=== PATIENT | male | born 1990 | race Caucasian/White ===

== ENCOUNTER 2018-08-10 12:07 | Inpatient (IN) | payer MEDICAID, OTHER ==
--- NOTE | 2018-08-10 13:11 | ED ---
Psych HPI - General Chief Complaint: Psychiatric Symptoms Stated Complaint: mental health Time Seen by Provider: 08/10/18 12:56 Source: patient, RN notes reviewed, old records reviewed Mode of arrival: ambulatory - History of Present Illness Initial Comments: This is a 27-year-old male the ER for evaluation. Patient resents ER today for evaluation or psychiatric issues. Patient is having delusions paranoid thought word salad, fixation flight of ideas. Patient is brought in by PD for psychiatric evaluation, patient's pain petitioned by parents for psychiatric treatment MD Complaint: altered mental status -: unknown Associated Psychiatric Symptoms: racing thoughts, auditory hallucinations, delusions Quality: constant Improves With: none Worsens With: none Associated Symptoms: denies other symptoms Treatments Prior to Arrival: placed on mental health hold - Related Data Home Medications Medication Instructions Recorded Confirmed No Known Home Medications 08/10/18 08/10/18 Allergies Allergy/AdvReac Type Severity Reaction Status Date / Time No Known Allergies Allergy Verified 08/10/18 12:47 Review of Systems ROS Statement: Those systems with pertinent positive or pertinent negative responses have been documented in the HPI. ROS Other: All systems not noted in ROS Statement are negative. Past Medical History Past Medical History: No Reported History History of Any Multi-Drug Resistant Organisms: None Reported Past Surgical History: No Surgical Hx Reported Past Psychological History: Anxiety, Bipolar, PTSD Smoking Status: Current every day smoker Past Alcohol Use History: Occasional Past Drug Use History: Marijuana General Exam Limitations: no limitations, altered mental status General appearance: alert, in no apparent distress Head exam: Present: atraumatic, normocephalic, normal inspection Eye exam: Present: normal appearance, PERRL, EOMI. Absent: scleral icterus, conjunctival injection, periorbital swelling ENT exam: Present: normal exam, mucous membranes moist Neck exam: Present: normal inspection. Absent: tenderness, meningismus, lymphadenopathy Respiratory exam: Present: normal lung sounds bilaterally. Absent: respiratory distress, wheezes, rales, rhonchi, stridor Cardiovascular Exam: Present: regular rate, normal rhythm, normal heart sounds. Absent: systolic murmur, diastolic murmur, rubs, gallop, clicks GI/Abdominal exam: Present: soft, normal bowel sounds. Absent: distended, tenderness, guarding, rebound, rigid Extremities exam: Present: normal inspection, full ROM, normal capillary refill. Absent: tenderness, pedal edema, joint swelling, calf tenderness Back exam: Present: normal inspection Neurological exam: Present: alert, oriented X3, CN II-XII intact Psychiatric exam: Present: normal affect, normal mood Skin exam: Present: warm, dry, intact, normal color. Absent: rash Course Vital Signs 08/10/18 08/10/18 12:19 19:00 Temperature 97.7 F 99.0 F Pulse Rate 88 77 Respiratory 24 18 Rate Blood Pressure 132/93 136/69 O2 Sat by Pulse 99 99 Oximetry - Reevaluation(s) Reevaluation #1: 08/10/18 14:03 Patient's medically clear for psychiatric evaluation Medical Decision Making - Medical Decision Making 27 male seen evaluated with psychiatry, patient be admitted for psychiatric inpatient treatment - Lab Data Lab Results 08/10/18 08/10/18 Range/Units 17:15 17:15 Urine Color Yellow Urine Appearance Cloudy (Clear) Urine pH 6.5 (5.0-8.0) Ur Specific [place] 1.019 (1.001-1.035) Urine Protein 1+ H (Negative) Urine Glucose (UA) Negative (Negative) Urine Ketones Negative (Negative) Urine Blood Negative (Negative) Urine Nitrite Negative (Negative) Urine Bilirubin Negative (Negative) Urine Urobilinogen 2.0 (<2.0) mg/dL Ur Leukocyte Esterase Negative (Negative) Urine RBC 2 (0-5) /hpf Urine Mucus Rare H (None) /hpf Urine Opiates Screen Not Detected (NotDetected) Ur Oxycodone Screen Not Detected (NotDetected) Urine Methadone Screen Not Detected (NotDetected) Ur Propoxyphene Screen Not Detected (NotDetected) Ur Barbiturates Screen Not Detected (NotDetected) U Tricyclic Antidepress Not Detected (NotDetected) Ur Phencyclidine Scrn Not Detected (NotDetected) Ur Amphetamines Screen Not Detected (NotDetected) U Methamphetamines Scrn Not Detected (NotDetected) U Benzodiazepines Scrn Not Detected (NotDetected) Urine Cocaine Screen Not Detected (NotDetected) U Marijuana (THC) Screen Detected H (NotDetected) Disposition Clinical Impression: Acute psychosis Disposition: TRANSFER TO PSYCH HOSP/UNIT Condition: Fair Is patient prescribed a controlled substance at d/c from ED?: No
[2018-08-10 17:44] LABS: Amphetamine Screen,Urine Not Detected (NotDetected); Barbiturate Screen,Urine Not Detected (NotDetected); Benzodiazepines Screen,Urine Not Detected (NotDetected); Cocaine Screen,Urine Not Detected (NotDetected); Methadone Screen, Urine Not Detected (NotDetected); Opiate Screen,Urine Not Detected (NotDetected); Oxycodone Screen, Urine Not Detected (NotDetected); Phencyclidine Screen,Urine Not Detected (NotDetected); Tricyclic Antidepressant,Urine Not Detected (NotDetected); Urn Cannabinoid Scrn Detected (NotDetected)
[2018-08-10] MEDS ORDERED: MAG HYDROX/AL HYDROX/SIMETH 30 ML CUP PO PRN (19:26)
[2018-08-10] MEDS ORDERED: ZIPRASIDONE 20 MG VIAL IM PRN (19:26)
[2018-08-10] MEDS ORDERED: MAGNESIUM HYDROXIDE 2,400 MG/10 ML CUP PO PRN (19:26)
[2018-08-10] MEDS ORDERED: LORazepam 2 MG/ML INJ IM PRN (19:37)
[2018-08-10] MEDS ORDERED: WATER FOR INJECTION, STERILE 10 ML IV ONE (19:41)
[2018-08-10] MEDS ORDERED: ZIPRASIDONE 20 MG VIAL IM ONE (19:41)
[2018-08-10 19:54] LABS: Appearance,Urine Cloudy (Clear); Bilirubin,Urine Negative (Negative); Blood,Urine Negative (Negative); Color,Urine Yellow; Glucose,Urine (UA) Negative (Negative); Ketones,Urine Negative (Negative); Leukocyte Esterase,Urine Negative (Negative); Mucus,Urine Rare /hpf; Nitrite,Urine Negative (Negative); PH, Urine 6.5 (5.0-8.0); Protein,Urine 1+ (Negative); RBC,Urine 2 /hpf (0-5); Specific Gravity,Urine 1.019 (1.001-1.035)
[2018-08-10] MEDS: NICOTINE 14MG/24HR PATCH TRANSDERM SCH (21:12)
--- NOTE | 2018-08-11 07:04 | P.PN ---
Progress Note - Text Progress Note Date: 08/11/18 I was notified by RN to evaluate patient as new medical consult. Patient was agitated, and using vulgar language, He did not cooperate with interview at this time. please notify sound physicians at a later time when patient is more cooperative and ready to be evaluated medically.
[2018-08-11] MEDS: NICOTINE 14MG/24HR PATCH TRANSDERM SCH (08:59)
--- NOTE | 2018-08-11 11:17 | P.HP ---
Psychiatric H&P - . H&P Date: 08/11/18 History & Physical: Allergies Allergy/AdvReac Type Severity Reaction Status Date / Time No Known Allergies Allergy Verified 08/10/18 12:47 Vital Signs Temp 98.6 F 08/10/18 22:13 Pulse 77 08/10/18 19:00 Resp 18 08/10/18 22:13 BP 129/81 08/10/18 22:13 Pulse Ox 99 08/10/18 19:00 Intake & Output 08/10/18 08/11/18 08/11/18 18:59 06:59 18:59 Weight 62.142 kg 65.317 kg Laboratory Last Values Urine Color Yellow 08/10/18 17:15 Urine Appearance Cloudy (Clear) 08/10/18 17:15 Urine pH 6.5 (5.0-8.0) 08/10/18 17:15 Ur Specific [place] 1.019 (1.001-1.035) 08/10/18 17:15 Urine Protein 1+ (Negative) H 08/10/18 17:15 Urine Glucose (UA) Negative (Negative) 08/10/18 17:15 Urine Ketones Negative (Negative) 08/10/18 17:15 Urine Blood Negative (Negative) 08/10/18 17:15 Urine Nitrite Negative (Negative) 08/10/18 17:15 Urine Bilirubin Negative (Negative) 08/10/18 17:15 Urine Urobilinogen 2.0 mg/dL (<2.0) 08/10/18 17:15 Ur Leukocyte Esterase Negative (Negative) 08/10/18 17:15 Urine RBC 2 /hpf (0-5) 08/10/18 17:15 Urine Mucus Rare /hpf (None) H 08/10/18 17:15 Urine Opiates Screen Not Detected (NotDetected) 08/10/18 17:15 Ur Oxycodone Screen Not Detected (NotDetected) 08/10/18 17:15 Urine Methadone Screen Not Detected (NotDetected) 08/10/18 17:15 Ur Propoxyphene Screen Not Detected (NotDetected) 08/10/18 17:15 Ur Barbiturates Screen Not Detected (NotDetected) 08/10/18 17:15 U Tricyclic Antidepress Not Detected (NotDetected) 08/10/18 17:15 Ur Phencyclidine Scrn Not Detected (NotDetected) 08/10/18 17:15 Ur Amphetamines Screen Not Detected (NotDetected) 08/10/18 17:15 U Methamphetamines Scrn Not Detected (NotDetected) 08/10/18 17:15 U Benzodiazepines Scrn Not Detected (NotDetected) 08/10/18 17:15 Urine Cocaine Screen Not Detected (NotDetected) 08/10/18 17:15 U Marijuana (THC) Screen Detected (NotDetected) H 08/10/18 17:15 Assessment and Plan Assessment: This is a 27-year-old male the ER for evaluation. Patient resents ER today for evaluation or psychiatric issues. Patient is having delusions paranoid thought word salad, fixation flight of ideas. Patient is brought in by PD for psychiatric evaluation, patient's pain petitioned by parents for psychiatric treatment MD Complaint: altered mental status -: unknown Associated Psychiatric Symptoms: racing thoughts, auditory hallucinations, delusions Quality: constant Improves With: none Worsens With: none Associated Symptoms: denies other symptoms Treatments Prior to Arrival: placed on mental health hold - Related Data Home Medications Medication Instructions Recorded Confirmed No Known Home Medications 08/10/18 08/10/18 Allergies Allergy/AdvReac Type Severity Reaction Status Date / Time No Known Allergies Allergy Verified 08/10/18 12:47 Past Medical History Past Medical History: No Reported History History of Any Multi-Drug Resistant Organisms: None Reported Past Surgical History: No Surgical Hx Reported Past Psychological History: Anxiety, Bipolar, PTSD Smoking Status: Current every day smoker Past Alcohol Use History: Occasional Past Drug Use History: Marijuana Course Vital Signs 08/10/18 08/10/18 12:19 19:00 Temperature 97.7 F 99.0 F Pulse Rate 88 77 Respiratory 24 18 Rate Blood Pressure 132/93 136/69 O2 Sat by Pulse 99 99 Oximetry Lab Results 08/10/18 08/10/18 Range/Units 17:15 17:15 Urine Color Yellow Urine Appearance Cloudy (Clear) Urine pH 6.5 (5.0-8.0) Ur Specific [place] 1.019 (1.001-1.035) Urine Protein 1+ H (Negative) Urine Glucose (UA) Negative (Negative) Urine Ketones Negative (Negative) Urine Blood Negative (Negative) Urine Nitrite Negative (Negative) Urine Bilirubin Negative (Negative) Urine Urobilinogen 2.0 (<2.0) mg/dL Ur Leukocyte Esterase Negative (Negative) Urine RBC 2 (0-5) /hpf Urine Mucus Rare H (None) /hpf Urine Opiates Screen Not Detected (NotDetected) Ur Oxycodone Screen Not Detected (NotDetected) Urine Methadone Screen Not Detected (NotDetected) Ur Propoxyphene Screen Not Detected (NotDetected) Ur Barbiturates Screen Not Detected (NotDetected) U Tricyclic Antidepress Not Detected (NotDetected) Ur Phencyclidine Scrn Not Detected (NotDetected) Ur Amphetamines Screen Not Detected (NotDetected) U Methamphetamines Scrn Not Detected (NotDetected) U Benzodiazepines Scrn Not Detected (NotDetected) Urine Cocaine Screen Not Detected (NotDetected) U Marijuana (THC) Screen Detected H (NotDetected) Pt. brought in to by police. Pt. was at a restuarant in [place] and talking inappropriately. Mom came to ER to petition pt. Pt. had been in rehab and got into an arguement about some missing belongings and refused medication to calm down so had to leave. He is staying with his mother and step dad and went to work yesterday with a [employer] of his step dads friend. Pt. starting acting crazy. Per step dad he stated he wanted to jump off bridge and made a statement about being buried by his step dads son. Pt. came into ER rambling and making sexually inappropiate comments. Pt. talked about going on a cruise and looking for a girl to go with him. 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 Pt. unable to answer questions appropriately and started making gestures ie sticking himself in the side and saluting. When asked about any halucinations he stated "No fairy dust, no shadow figures. " Pt. continued to ramble and is hard to follow. Pt. talking to someone not in the room at times. Pt. rambled about his drinking. Pt. states "socially, every 3 years only on the weekends and when the right crowd is around. Business casual." Pt. states last drink was not long enough, for right now I am making the right choice." Pt. states he has been sober from [facility] [employer] and it's associates. Pt. UDS positive for marijuana Musculoskeletal Examination - Abnormal/Involuntary Movements: [none] Strength: [greater than antigravity (greater than/equal to 3/5) in all extremities Muscle Tone: [no impairment, dystonia, hypertonic/myoclonus, rigidity, flaccid] Gait: [grossly normal Station: [grossly normal Mental Status Examination - this is a 27-year-old male who was petitioned and brought in by the police. He is very grandiose and presentation casually dressed with a rapid pressured speech. He denies suicidal homicidal ideation at the current time. General Appearance: [ casual, bizarre, appears stated age Speech/Language: [spontaneous rapid, expressive, loud, ] Attitude/Behavior: [cooperative, irritable Mood: [ euphoric, anxious, elated, irritable, Affect: [ lively, labile, Orientation: [time, person, place situation] Thought Content: [ delusions, obsessions, phobias, other] Risk Factors: [suicidal (ideations, plan), and/or Homicidal (ideations, plan), other] Perception: [wnl, denies hallucinations (auditory, visual, tactile), other] Thought Processes: [ concrete, circumstantial, tangential] Concentration/Attention Span: [impaired] [Per observation and interview with the patient] Recent Memory: [ impaired] [2 out of 3 in 3 minutes] Remote Memory: [wnl] [past events, as related history] Intelligence: [ average] [based on history, based on vocabulary, syntax, grammar , and content] Judgement: [good] [per patient's behavior/history of present illness] Insight: [good] [understanding severity of illness/history of present illness] Admitting Diagnosis: [acute psychosis; bipolar disorder-maniac ] Patient Strengths - Steady employment/financial stability: [x] Housing stability: [x] Resources - social, interpersonal, monetary: [x] Patient Limitations: [medication, non-compliance, pathological/unsupported environment, legal issues, lack of social supports, Initial Plan of Care: [involuntary medical evaluation, medical, psychiatric, 15 minutes checks social work, occupational. This appears to be his first time in a psychiatric facility and having a first-time break for gail. As mentioned below. He does have a DUI where he was high on amphetamines and is awaiting charges. He is very bizarre and delusional, tangential in presentation and grandiose in nature.] Estimated Length of Stay: 7 Initial Discharge Plan: [home, [facility], Prognosis: [good] Justification for Inpatient Hospitalization - [delusions, agitation, anxiety, depression resulting in significant loss of functioning.] [Dangerous to others, or property with need for controlled environment.] [Emotional or behavioral conditions and complications requiring 24 hour medical and nursing care.] [Need for special drug therapy, or other therapeutic program requiring continuous hospitalization.] [Failure of social or occupational functioning.] [Inability to meet basic life and health needs.] [Legally mandated admission.]facing OUI- June 02, 2018-12 hours detention (1) Bipolar depression manic phase Current Visit: Yes Status: Acute Priority: High Code(s): F31.9 - BIPOLAR DISORDER, UNSPECIFIED SNOMED Code(s): 574341597 (2) Acute psychosis Current Visit: Yes Status: Acute Priority: High Code(s): F23 - BRIEF PSYCHOTIC DISORDER SNOMED Code(s): 29475601
[2018-08-11 11:22] LABS: Basophils # (A) 0.1 k/uL (0-0.2); Basophils % (A) 1 %; Eosinophils # (A) 0.2 k/uL (0-0.7); Eosinophils % (A) 2 %; HCT 45.8 % (39.0-53.0); HGB 14.7 gm/dL (13.0-17.5); Lymphocytes # (A) 3.3 k/uL (1.0-4.8); Lymphocytes % (A) 34 %; MCH 27.9 pg (25.0-35.0); MCV 87.3 fL (80.0-100.0); Mean Platelet Volume 6.5; Monocytes # (A) 0.4 k/uL (0-1.0); Monocytes % (A) 4 %; Neutrophils # (A) 5.5 k/uL (1.3-7.7); Neutrophils % (A) 57 %; Platelet Count 352 k/uL (150-450); RBC 5.25 m/uL (4.30-5.90); RDW 13.4 % (11.5-15.5); WBC 9.6 k/uL (3.8-10.6)
[2018-08-11 11:33] LABS: ALT 49 U/L (21-72); AST 52 U/L (17-59); Albumin 4.6 g/dL (3.5-5.0); Alkaline Phosphatase 43 U/L (38-126); Anion Gap 8 mmol/L; Bilirubin, Delta 0.2 mg/dL (0.0-0.2); Bilirubin,Unconjugated 0.3 mg/dL (0.0-1.1); Blood Urea Nitrogen 16 mg/dL (9-20); Calcium 10.3 mg/dL (8.4-10.2); Carbon Dioxide 28 mmol/L (22-30); Chloride 105 mmol/L (98-107); Glucose 80 mg/dL (74-99); Potassium 4.7 mmol/L (3.5-5.1); Sodium 141 mmol/L (137-145); Total Bilirubin 0.5 mg/dL (0.2-1.3); Total Protein 7.2 g/dL (6.3-8.2)
[2018-08-12] MEDS: NICOTINE 14MG/24HR PATCH TRANSDERM SCH (09:41)
--- NOTE | 2018-08-12 12:13 | P.PN ---
Subjective Progress Note Date: 08/12/18 Principal diagnosis: acute psychosis-bipolar disorder This is a 27-year-old male the ER for evaluation. Patient resents ER today for evaluation or psychiatric issues. Patient is having delusions paranoid thought word salad, fixation flight of ideas. Patient is brought in by PD for psychiatric evaluation, patient's pain petitioned by parents for psychiatric treatment this is a 27-year-old male who was petitioned and brought in by the police. He is very grandiose and presentation casually dressed with a rapid pressured speech. He denies suicidal homicidal ideation at the current time. Objective - Vital Signs Vital signs: Vital Signs Temp 98.6 F 08/10/18 22:13 Pulse 89 08/12/18 06:54 Resp 16 08/12/18 06:54 BP 132/77 08/12/18 06:54 Pulse Ox 99 08/10/18 19:00 - Labs CBC & Chem 7: 08/11/18 10:58 08/11/18 10:58 Assessment and Plan Assessment: This is a 27-year-old male the ER for evaluation. Patient resents ER today for evaluation or psychiatric issues. Patient is having delusions paranoid thought word salad, fixation flight of ideas. Patient is brought in by PD for psychiatric evaluation, patient's pain petitioned by parents for psychiatric treatment MD Complaint: altered mental status -: unknown Associated Psychiatric Symptoms: racing thoughts, auditory hallucinations, delusions Quality: constant Improves With: none Worsens With: none Associated Symptoms: denies other symptoms Treatments Prior to Arrival: placed on mental health hold - Related Data Home Medications Medication Instructions Recorded Confirmed No Known Home Medications 08/10/18 08/10/18 Allergies Allergy/AdvReac Type Severity Reaction Status Date / Time No Known Allergies Allergy Verified 08/10/18 12:47 Past Medical History Past Medical History: No Reported History History of Any Multi-Drug Resistant Organisms: None Reported Past Surgical History: No Surgical Hx Reported Past Psychological History: Anxiety, Bipolar, PTSD Smoking Status: Current every day smoker Past Alcohol Use History: Occasional Past Drug Use History: Marijuana Course Vital Signs 08/10/18 08/10/18 12:19 19:00 Temperature 97.7 F 99.0 F Pulse Rate 88 77 Respiratory 24 18 Rate Blood Pressure 132/93 136/69 O2 Sat by Pulse 99 99 Oximetry Lab Results 08/10/18 08/10/18 Range/Units 17:15 17:15 Urine Color Yellow Urine Appearance Cloudy (Clear) Urine pH 6.5 (5.0-8.0) Ur Specific [place] 1.019 (1.001-1.035) Urine Protein 1+ H (Negative) Urine Glucose (UA) Negative (Negative) Urine Ketones Negative (Negative) Urine Blood Negative (Negative) Urine Nitrite Negative (Negative) Urine Bilirubin Negative (Negative) Urine Urobilinogen 2.0 (<2.0) mg/dL Ur Leukocyte Esterase Negative (Negative) Urine RBC 2 (0-5) /hpf Urine Mucus Rare H (None) /hpf Urine Opiates Screen Not Detected (NotDetected) Ur Oxycodone Screen Not Detected (NotDetected) Urine Methadone Screen Not Detected (NotDetected) Ur Propoxyphene Screen Not Detected (NotDetected) Ur Barbiturates Screen Not Detected (NotDetected) U Tricyclic Antidepress Not Detected (NotDetected) Ur Phencyclidine Scrn Not Detected (NotDetected) Ur Amphetamines Screen Not Detected (NotDetected) U Methamphetamines Scrn Not Detected (NotDetected) U Benzodiazepines Scrn Not Detected (NotDetected) Urine Cocaine Screen Not Detected (NotDetected) U Marijuana (THC) Screen Detected H (NotDetected) Pt. brought in to by police. Pt. was at a restuarant in [place] and talking inappropriately. Mom came to ER to petition pt. Pt. had been in rehab and got into an arguement about some missing belongings and refused medication to calm down so had to leave. He is staying with his mother and step dad and went to work yesterday with a [employer] of his step dads friend. Pt. starting acting crazy. Per step dad he stated he wanted to jump off bridge and made a statement about being buried by his step dads son. Pt. came into ER rambling and making sexually inappropiate comments. Pt. talked about going on a cruise and looking for a girl to go with him. 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 Pt. unable to answer questions appropriately and started making gestures ie sticking himself in the side and saluting. When asked about any halucinations he stated "No fairy dust, no shadow figures. " Pt. continued to ramble and is hard to follow. Pt. talking to someone not in the room at times. Pt. rambled about his drinking. Pt. states "socially, every 3 years only on the weekends and when the right crowd is around. Business casual." Pt. states last drink was not long enough, for right now I am making the right choice." Pt. states he has been sober from [employer] and it's associates. Pt. UDS positive for marijuana Musculoskeletal Examination - Abnormal/Involuntary Movements: [none] Strength: [greater than antigravity (greater than/equal to 3/5) in all extremities Muscle Tone: [no impairment, dystonia, hypertonic/myoclonus, rigidity, flaccid] Gait: [grossly normal Station: [grossly normal Mental Status Examination - this is a 27-year-old male who was petitioned and brought in by the police. He is very grandiose and presentation casually dressed with a rapid pressured speech. He denies suicidal homicidal ideation at the current time. General Appearance: [ casual, bizarre, appears stated age Speech/Language: [spontaneous rapid, expressive, loud, ] Attitude/Behavior: [cooperative, irritable Mood: [ euphoric, anxious, elated, irritable, Affect: [ lively, labile, Orientation: [time, person, place situation] Thought Content: [ delusions, obsessions, phobias, other] Risk Factors: [suicidal (ideations, plan), and/or Homicidal (ideations, plan), other] Perception: [wnl, denies hallucinations (auditory, visual, tactile), other] Thought Processes: [ concrete, circumstantial, tangential] Concentration/Attention Span: [impaired] [Per observation and interview with the patient] Recent Memory: [ impaired] [2 out of 3 in 3 minutes] Remote Memory: [wnl] [past events, as related history] Intelligence: [ average] [based on history, based on vocabulary, syntax, grammar , and content] Judgement: [good] [per patient's behavior/history of present illness] Insight: [good] [understanding severity of illness/history of present illness] Admitting Diagnosis: [acute psychosis; bipolar disorder-maniac ] Patient Strengths - Steady employment/financial stability: [x] Housing stability: [x] Resources - social, interpersonal, monetary: [x] Patient Limitations: [medication, non-compliance, pathological/unsupported environment, legal issues, lack of social supports, Initial Plan of Care: [involuntary medical evaluation, medical, psychiatric, 15 minutes checks social work, occupational. This appears to be his first time in a psychiatric facility and having a first-time break for gail. As mentioned below. He does have a DUI where he was high on amphetamines and is awaiting charges. He is very bizarre and delusional, tangential in presentation and grandiose in nature. He is able to sleep but he is ingratiating and tone and attitude. He appears to be detoxing from magic mushrooms and tends to interact with females more than males.] Estimated Length of Stay: 6 Initial Discharge Plan: [home, [facility] [address], Prognosis: [good] Justification for Inpatient Hospitalization - [delusions, agitation, anxiety, depression resulting in significant loss of functioning.] [Dangerous to others, or property with need for controlled environment.] [Emotional or behavioral conditions and complications requiring 24 hour medical and nursing care.] [Need for special drug therapy, or other therapeutic program requiring continuous hospitalization.] [Failure of social or occupational functioning.] [Inability to meet basic life and health needs.] [Legally mandated admission.]facing OUI- June 02, 2018-12 hours assisted (1) Bipolar depression manic phase Current Visit: Yes Status: Acute Priority: High Code(s): F31.9 - BIPOLAR DISORDER, UNSPECIFIED SNOMED Code(s): 838340593 (2) Acute psychosis Current Visit: Yes Status: Acute Priority: High Code(s): F23 - BRIEF PSYCHOTIC DISORDER SNOMED Code(s): 47161660 Time with Patient: Less than 30
[2018-08-13] MEDS: LORazepam 1 MG TAB PO PRN (00:43)
[2018-08-13] MEDS: NICOTINE 14MG/24HR PATCH TRANSDERM SCH (07:54)
--- NOTE | 2018-08-13 11:11 | P.PN ---
Progress Note - Text Interval history: The patient is found in the front desk representative he follows me to an interview room. The psychiatric evaluation and progress note were reviewed. The patient presented acutely psychotic in the context of not sleeping for several days. The patient is also noted to have you several substances including mushrooms. He states he's also used "polo" and methamphetamine. He states that he came in psychotic but feels he is clearing. He describes a long history of substance use. He indicates that he is recently employed. He is hoping to not require a lengthy admission. Staff report that the patient still is somewhat bizarre but much improved from time of admission. Mental status exam: The patient is alert he is cooperative and directable. He remains seated in the chair. He is dressed in his own clothing. Hygiene grooming adequate. Speech is fluent and spontaneous he circumstantial and at times tangential. He is redirectable. He demonstrates no loose associations or flight of ideas. He is reporting no auditory or visual hallucinations he is reporting no thoughts of self-harm or harm to others. It appears he presented with acute paranoid and persecutory thoughts. Insight and judgment improving. He is oriented to person place and date. He demonstrates no verbal or physical aggressiveness or any involuntary repetitive movements. Plan: The patient states he does not wish to be prescribed any psychotropic medication. He feels he is here due to his recent use of illicit substances which induced severe insomnia. Comparing his present status to the documentation it seems that his psychosis is improving. A second clinical certificate was completed we are awaiting a deferral conference. Social work will make arrangements for support meeting to involve his family as he will allow. Vital signs reviewed.
[2018-08-14] MEDS: NICOTINE 14MG/24HR PATCH TRANSDERM SCH (09:23)
--- NOTE | 2018-08-14 11:00 | P.PN ---
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 He indicates his mood is good. He states he slept last night. Appetite is stable. He has been speaking with his mother. He continues to assert he does not want any prescribed medication. Again we tried to discuss his presentation. We tried to see if he has ever had any episodes of hypomania or gail. He has signed a release for us to speak with his mother. I did speak with her for several minutes. She feels that the patient is tricking us and is concerned how psychotic he was at time of admission. We discussed that it is likely due to the influence of substances he was using. She states he does not have a history of hypomanic or manic episodes. Her and her significant other do not want the patient put on any medication and they do not feel that he needs inpatient chemical dependency treatment. The patient is somewhat disorganized this morning he indicates he'll go to rehab if we direct him to but he doesn't necessarily feel as needed as he was discharged earlier this month from rehab. His mother feels that he would benefit from individual counseling upon discharge. Social work has been in touch with the patient's family to arrange a support meeting. Mental status exam: The patient is alert he is a thin male appearing his stated age. Hygiene grooming adequate. Speech is fluent spontaneous nonpressured. He is verbose but directable. He can be tangential at times. He appears to have difficulty retaining information currently. Insight and judgment are impaired. He reports no suicidal or homicidal thoughts. He is endorsing no auditory or visual hallucinations. He endorses no specific delusions but it appears he is still under the influence of some delusional thought. He demonstrates no verbal or physical aggressiveness. Plan: The patient has demonstrated some improvement in terms of the severity of psychosis but those symptoms still persist. We are awaiting his deferral conference. We will continue evaluating him daily to see if medication management is a necessity. Again he and his family prefer that he is not prescribed any medicine. He is not clear enough at this time to decide on inpatient chemical dependency treatment. We will monitor him for safety and encourage participation in the milieu.
[2018-08-14] MEDS: LORazepam 1 MG TAB PO PRN (17:47)
[2018-08-15] MEDS: LORazepam 1 MG TAB PO PRN (01:00)
[2018-08-15] MEDS: NICOTINE 14MG/24HR PATCH TRANSDERM SCH (09:45)
--- NOTE | 2018-08-15 10:58 | P.PN ---
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 He indicates his mood is frustrated as he is still here in the hospital. He has a deferral conference scheduled for tomorrow I was informed that he has a support meeting scheduled for tomorrow as well. Staff report that he had difficulty sleeping last night he became loud and agitated he was given Ativan to calm him. He describes events of the day from yesterday. He continues to demonstrate some difficulty maintaining a linear thought process. Mental status exam: The patient is alert he is a thin male appearing his stated age. He is dressed in his own clothing he is mildly disheveled. He has his pants tucked into his socks. Speech is fluent he is verbose he is not pressured. He is directable and can be interrupted. He reports no thoughts of harming himself or others. He demonstrates tangential thought process at times he can be overly circumstantial. He is reporting no auditory or visual hallucinations or specific delusions. He may be harboring some paranoid thinking based on comments he made to staff last evening. Apparently he accused them of lying to him. During the course of our discussion his affect did change to a more frustrated look. Insight and judgment limited. Plan: We will offer her Seroquel 50 mg at bedtime. We discussed that this may help him sleep and may help with organizing his thought process. We will monitor him for safety and encourage participation in the milieu.
[2018-08-15] MEDS: QUEtiapine 50 MG TAB PO SCH (20:13)
[2018-08-16] MEDS: NICOTINE 14MG/24HR PATCH TRANSDERM SCH (08:37)
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
[2018-08-16] MEDS: QUEtiapine 50 MG TAB PO SCH (22:13)
[2018-08-17] MEDS: NICOTINE 14MG/24HR PATCH TRANSDERM SCH (07:54)
--- NOTE | 2018-08-17 10:06 | P.PN ---
Progress Note - Text Interval history: The patient is found in group he follows me to an interview room. He participated in a support meeting with his mother and stepfather yesterday. Social work notes were reviewed. The patient states that he is trying to organize his thoughts. He continues to speak in a bizarre fashion. He continues to try to over intellectualize the conversation with vocabulary however it often it is not appropriate. He indicates he slept last night staff report he slept 3 hours. He is more accepting now of me titrating the Seroquel and we discussed doing so this evening. His family expressed a concern about him maintaining sobriety. Mental status exam: The patient is alert he is dressed in his own clothing. Eye contact is appropriate. Speech is fluent ongoing verbose. He does interrupt me several times in conversation. He apologizes at strange times. He lacks insight into his current symptoms he continues to demonstrate tangential thinking at times loose associations. He reports no suicidal or homicidal thoughts he reports no auditory or visual hallucinations or any specific delusions. He may be underreporting delusional thought. He demonstrates no verbal or physical aggressiveness. He demonstrates no involuntary repetitive movements. Plan: The patient remains symptomatic he continues to have disorganization of thought that is not consistent with baseline. we will titrate the Seroquel to 100 mg at bedtime and will continue titrating to a therapeutic dose. The patient is now I'll willing to allow the use of this medication and a titration. Vital signs reviewed. We will continue to provide reality orientation when possible. We will continue monitor him for safety.
[2018-08-17] MEDS: ACETAMINOPHEN TAB 325 MG TAB PO PRN (10:44)
[2018-08-17] MEDS: LORazepam 1 MG TAB PO PRN (17:44)
[2018-08-17] MEDS: QUEtiapine 100 MG TAB PO SCH (22:15)
[2018-08-18] MEDS: NICOTINE 14MG/24HR PATCH TRANSDERM SCH (09:10)
[2018-08-18] MEDS ORDERED: LORazepam 1 MG TAB ONE (15:23)
[2018-08-18] MEDS: QUEtiapine 100 MG TAB PO SCH (21:56)
[2018-08-19] MEDS: NICOTINE 14MG/24HR PATCH TRANSDERM SCH ×2 (07:45→08:08)
[2018-08-19] MEDS: LORazepam 1 MG TAB PO PRN (14:55)
--- NOTE | 2018-08-19 15:45 | P.PN ---
Progress Note - Text Progress Note Date: 08/19/18 IDENTIFICATION DATA: This is a 27-year-old male admitted to mental health unit with symptoms of gail. INTERVAL HISTORY: Patient reports I just took an ativan, its just kicking in. He states my gail is getting worse being in here and I need an increase in seroquel but I would rather have my regular doctor increase it rather than you, because I am paranoid about you. He reports feeling angry for letting every one on this unit pushing his buttons. He says he cant do anything about it because he is not one of the persons who makes unit policies and rules. He says he is becoming more mentally ill being around mentally ill people. He says he has not slept well yesterday despite being on seroquel. MENTAL STATUS EXAMINATION: Patient appeared in fair grooming and hygiene.. His speech is pressured with flight of ideas. His mood is irritable. affect appropriate. The patient is alert and oriented 4 and in no apparent distress. Denies auditory or visual hallucinations. Denies paranoia. Denies suicidal or homicidal ideations. Insight and judgment are limited. ASSESSMENT AND PLAN: Continue current medications Monitor for safety and symptoms
[2018-08-19] MEDS: QUEtiapine 100 MG TAB PO SCH (23:03)
--- NOTE | 2018-08-20 11:47 | P.PN ---
Progress Note - Text Interval history: The patient is found in group he follows me to an interview room. The patient states he's feeling frustrated and irritable. He indicates he wants to be discharged I'm costing him too much money I not letting him work. He states he's feeling manic. He states that he knows what going on here alluding to paranoid thinking he is experiencing. The Seroquel dose was not titrated over the weekend he was informed that we would need to increase it and he was agreeable. Mental status exam: The patient is alert he is irritable and agitated but threatens no violence. Thought process is not well organized he's tangential. He tries to overuse vocabulary and verbalized two neologisms. He reports no thoughts of harming himself or others. He continues to lack insight into his poor impulse control thought disorganization and now paranoid thinking. The session was abbreviated due to his agitation. Plan: The patient will continue on the Seroquel we will titrate the dose to 200 mg at bedtime with a plan of titrating it further. We will monitor him for safety and encourage his participation in the milieu. He requires continued psychiatric hospitalization as he is not yet clinically stable.
[2018-08-20] MEDS: LORazepam 1 MG TAB PO PRN ×2 (12:30→21:18)
[2018-08-20] MEDS ORDERED: QUEtiapine 200 MG TAB PO SCH (21:00)
[2018-08-21 05:24] VITALS: TEMP 97.6
[2018-08-21] MEDS: NICOTINE 14MG/24HR PATCH TRANSDERM SCH (08:57)
--- NOTE | 2018-08-21 11:10 | P.PN ---
Progress Note - Text Interval history: The patient is found in group he refuses to speak with me. He states "I don't think you're ready to talk to me bro,... unless her ready to discuss my discharge". He is reportedly eating adequately. It's recorded he slept 5 hours last night. Mental status exam: The patient is seated at the table writing. Staff report that he continues to demonstrate a disorganized thought process with irritability at times. The patient was irritable during our brief interaction but demonstrated no aggressiveness. Insight and judgment continues to be impaired. He appeared to be in no physical distress. He is dressed in his own clothing hygiene grooming appeared to be adequate. Plan: The patient will continue on Seroquel we will titrate the dose to 300 mg at bedtime. We will continue to monitor him for safety. Vital signs reviewed. He requires continued hospitalization due to his agitation and thought disorganization.
[2018-08-21] MEDS: LORazepam 1 MG TAB PO PRN (18:37)
[2018-08-21] MEDS: QUEtiapine 100 MG TAB PO SCH (22:17)
[2018-08-22 06:56] VITALS: RESP 16
[2018-08-22] MEDS: NICOTINE 14MG/24HR PATCH TRANSDERM SCH ×2 (08:13→15:19)
[2018-08-22] MEDS: LORazepam 1 MG TAB PO PRN ×2 (09:16→21:12)
--- NOTE | 2018-08-22 12:01 | P.PN ---
Progress Note - Text Interval history: The patient is found in group he follows me to an interview room. He was willing to speak with me today. He voices his frustration that he still in the hospital. We discussed his treatment goals while he is here. To the best of his ability he is expected to control his behavior, make efforts at organizing his thoughts. We reviewed his psychotropic medication his questions were answered. His blood pressure was lower this morning he has been drinking water we discussed that this could be an acclamation issue and we will follow closely. Mental status exam: The patient is a thin male he stressors in his own clothing. Eye contact is intermittent. 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 He will write down a variety words during our conversation. He indicates he is aware that he is having these behavioral episodes and that they are likely prolonging his stay. He states that it is his goal to control those better. He refers to paranoid thoughts. He states he struggles with women in authoritative positions and I will often provoke a reaction. He is reporting no suicidal or homicidal thoughts. He is endorsing no hallucinations. His thought process remains tangential sometimes loose associations are detected. He demonstrates no verbal or physical aggressiveness. He demonstrates no abnormal involuntary movements. He is alert and interactive throughout our session. Plan: The patient will continue on the Seroquel which is just been titrated 300 mg at bedtime we will consider titrating further. We will monitor his blood pressure. He requires continued psychiatric hospitalization. We discussed goals for him to accomplish prior to discharge. Nursing and social work have been in touch with the patient's family.
[2018-08-22] MEDS: ACETAMINOPHEN TAB 325 MG TAB PO PRN (18:06)
[2018-08-22] MEDS: QUEtiapine 100 MG TAB PO SCH (22:43)
[2018-08-23 07:04] VITALS: BP 108/56; PULSE 80
[2018-08-23] MEDS: ACETAMINOPHEN TAB 325 MG TAB PO PRN (07:45)
[2018-08-23] MEDS: NICOTINE 14MG/24HR PATCH TRANSDERM SCH (07:46)
--- NOTE | 2018-08-23 09:42 | P.PN ---
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 He indicates that he feels he is doing better. Staff report that there is a minor improvement in his behavior. Again we focused on him controlling his impulses and trying his best organizes thoughts. He slept approxi-5 hours last night. His stepfather visited last evening we will look for input from him based on that visit. The patient has been attending groups. He has no questions or concerns about his medication at this time. Mental status exam: The patient is alert he is dressed in his own clothing he has his pants tucked into his socks. Eye contact is appropriate. He is verbose but directable. He is apologetic for interrupting when that occurs. He reports no suicidal or homicidal thoughts. He is endorsing no auditory or visual hallucinations. He does not speak of any paranoid thoughts but does have some residual paranoid thinking. He demonstrates no verbal or physical aggressiveness. He demonstrates no involuntary repetitive movements. Insight and judgment limited. Plan: The patient will continue on the Seroquel. It appears there may have been some mild improvement. We will discuss his status during treatment team meeting to get information from staff. We will monitor him for safety and encourage his participation in the milieu. We will consider titrating the Seroquel further if needed. Vital signs reviewed.
[2018-08-23 10:45] VITALS: BMI 21.8
[2018-08-23] MEDS: QUEtiapine 100 MG TAB PO SCH (22:10)
[2018-08-24] MEDS: NICOTINE 14MG/24HR PATCH TRANSDERM SCH (08:45)
--- NOTE | 2018-08-24 10:15 | P.PN ---
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 He indicates that he is feeling better. He has no questions or concerns related to the Seroquel. He has been attending groups. He finds himself triggered at times by other patients but feels he is controlling his reaction. He continues to verbalize his preference to be discharged as soon as possible. Plan: The patient is alert he is dressed in his own clothing it appears he has drawn on his hands with an ink pen. Speech is fluent and spontaneous. He reports his mood is fine he is reporting no suicidal or homicidal ideation intent or plan. He is endorsing no auditory or visual hallucinations or specific delusions. Thought process is mildly more organized although there is still some disorganization. He is verbalizing more insight into symptoms he presented with. He is demonstrating no verbal or physical aggressiveness. Affect is expansive. Plan: The patient will continue on the Seroquel we will consider titrating the dose. We will discuss his progress during treatment team meeting. We will look for input from his family regarding his clinical status. Vital signs reviewed. We will continue to monitor him for safety.
[2018-08-24] MEDS: LORazepam 1 MG TAB PO PRN (13:37)
[2018-08-24] MEDS: QUEtiapine 100 MG TAB PO SCH (22:15)
[2018-08-25] MEDS: NICOTINE 14MG/24HR PATCH TRANSDERM SCH (08:24)
[2018-08-25] MEDS: ACETAMINOPHEN TAB 325 MG TAB PO PRN (08:54)
--- NOTE | 2018-08-25 09:52 | P.PN ---
Progress Note - Text Interval history: The patient is found in group he follows me to an interview room. The patient was again offered an opportunity to attend inpatient chemical dependency treatment yesterday. He followed that recommendation and is scheduled to start on Monday at 1 PM at [facility]. He had previously begun treatment at that facility. He feels he is now motivated to participate in chemical dependency treatment. We discussed the Seroquel his questions were answered. He feels that his mood is stabilizing. Mental status exam: The patient is alert he is presenting with adequate hygiene grooming speech is fluent and spontaneous. He is verbose. He has directable. He is reporting no suicidal or homicidal ideation intent or plan. He is endorsing no auditory or visual hallucinations. Thought process continues to mildly improved as the days passed. He demonstrates no verbal or physical aggressiveness. He demonstrates no abnormal involuntary movements. Plan: The patient will continue on the Seroquel as written. We will monitor him for safety. We will plan for him to transition to inpatient chemical dependency treatment on Monday if he is clinically stable.
[2018-08-25] MEDS: QUEtiapine 100 MG TAB PO SCH (21:37)
[2018-08-26] MEDS: NICOTINE 14MG/24HR PATCH TRANSDERM SCH (09:04)
--- NOTE | 2018-08-26 12:52 | P.PN ---
Progress Note - Text Interval history: The patient is found in the hallway he follows me to an interview room. He indicates his mood is improving. He states he had a pleasant visit from his mother. He is looking forward to being discharged to [facility] for inpatient chemical dependency treatment tomorrow. He reports he slept staff recorded he slept 6 hours. Appetite stable. We reviewed the Seroquel his questions were answered. Mental status exam: The patient is alert . Eye contact is appropriate speech is fluent and spontaneous nonpressured. He is verbose but redirectable. He continues to try to over intellectualize conversation with use of vocabulary. He will demonstrate circumstantial thinking. There has been a reduction in the tangential thinking. He reports no suicidal or homicidal ideation intent or plan. He is reporting no auditory or visual hallucinations or any specific delusions. He demonstrates no verbal or physical aggressiveness he demonstrates no involuntary repetitive movements. He spontaneously describes future oriented thoughts. Plan: The patient will continue on the Seroquel as written. If he remains clinically stable anticipate discharging him tomorrow to [facility] for inpatient chemical dependency treatment. We will continue to monitor him for safety.
[2018-08-26] MEDS: QUEtiapine 100 MG TAB PO SCH (21:26)
[2018-08-27] MEDS: NICOTINE 14MG/24HR PATCH TRANSDERM SCH (07:50)
--- NOTE | 2018-08-27 10:57 | P.DS ---
Providers Date of admission: 08/10/18 19:13 Expected date of discharge: 08/27/18 Attending physician: Kolton Cortes Consults: 08/10/18 19:26 Consult Physician Routine Consulting Provider: Sukhdev Physician Consult Reason/Comments: H&P and medical Do you want consulting provider notified?: Yes Primary care physician: Stated None - Discharge Diagnosis(es) (1) Bipolar depression manic phase Current Visit: Yes Status: Acute Priority: High (2) Cannabis use disorder, mild, abuse Current Visit: Yes Status: Acute Priority: Medium (3) Methamphetamine use disorder, moderate Current Visit: Yes Status: Acute Priority: Medium Hospital Course: Brief summary of admission note: The patient is a 27-year-old male who was admitted to the mental health unit demonstrating disorganized thought process and bizarre behavior. The patient was petitioned. He was making grandiose statements, reporting suicidal thoughts, and was making comments that were sexually inappropriate. The patient was initially evaluated by Dr. Scott please refer to his psychiatric evaluation for full detail. Summary of hospital course: The patient was admitted to the mental health unit a second clinical certificate was completed. At his deferral conference he did sign a deferral agreement. When I began working with him he states prior to admission he had been using methamphetamine mushrooms and mildly. He reportedly hadn't slept for several days. The initial working diagnosis was that his presenting symptoms could be substance-induced. However as time passed his symptoms did not improve. He remained resistant to the idea of using medication but eventually be discussed using Seroquel. We did titrate the Seroquel during the course of his stay. As the hospitalization progressed his behavior did improve his thought process became more organized. He was seen by internal medicine for routine history and physical exam. Social work met with the patient several times for discharge planning purposes. He did ultimately decide to attend inpatient chemical dependency treatment at [facility] which is scheduled for today. Mental status exam: The patient is alert he is dressed in his own clothing. Eye contact is appropriate. Speech is fluent he is verbose but nonpressured he is directable. He indicates his mood is good he reports no suicidal or homicidal ideation intent or plan. He feels his thoughts are more organized objectively they are more organized but he can be circumstantial at times. He demonstrates no verbal or physical aggressiveness. He demonstrates no involuntary repetitive movements. He is endorsing no auditory or visual hallucinations or any specific delusions. He has been able to sleep at night he does not appear manic at this time. Insight and judgment have improved. He is oriented to person place and date. Impressions 1. Bipolar 1 disorder most recent manic with psychosis, methamphetamine use disorder, cannabis use disorder, hallucinogen use disorder Plan: The patient will be discharged mental health unit today he will be going directly to [facility] for inpatient chemical dependency treatment. His mother will be transporting him from the hospital to [facility]. The patient will continue on Seroquel 300 mg at bedtime. He is instructed to abstain from any use of alcohol marijuana or any illicit drug as these will precipitate mood and psychotic symptoms and elevate his safety risk. At this time there is no imminent safety risk he is appropriate for transition to inpatient chemical dependency treatment. He is informed that he may present to the hospital any acute safety concerns. Patient Condition at Discharge: Stable Plan - Discharge Summary Discharge Rx Participant: No New Discharge Prescriptions: New Nicotine 14Mg/24Hr Patch [Habitrol] 1 patch TRANSDERM DAILY #12 patch QUEtiapine FUMARATE [SEROquel] 300 mg PO HS #30 tab Discharge Medication List Nicotine 14Mg/24Hr Patch [Habitrol] 1 patch TRANSDERM DAILY #12 patch 08/27/18 [ Rx] QUEtiapine FUMARATE [SEROquel] 300 mg PO HS #30 tab 08/27/18 [Rx] Follow up Appointment(s)/Referral(s): intake, intake [Other] - 08/27/18 1:00 pm [facility] [NON-STAFF] - 1 Week Patient Instructions/Handouts: How to Stop Smoking (GEN), Mood Disorders (DC), Bipolar Disorder (DC), Psychotic Disorder (DC), Suicide Prevention (DC) Activity/Diet/Wound Care/Special Instructions: Keep your follow up appointments as scheduled. Continue medications as prescribed. No alcohol or street drugs. No access to guns or weapons. If you have any problems call the crisis line at or 515 in case of emergency.
== END 2018-08-27 11:34 | DRG 885 ==
LOC: EC 12:07 → 3MHU 19:13
PROVIDERS: ADMIT Psychiatry & Neurology Psychiatry; ATTEND Psychiatry & Neurology Psychiatry
DX: F31.2 Bipolar disorder, current episode manic severe with psychotic features (principal); R45.851 Suicidal ideations; F15.10 Other stimulant abuse, uncomplicated; F12.10 Cannabis abuse, uncomplicated; F16.10 Hallucinogen abuse, uncomplicated; Z65.3 Problems related to other legal circumstances; F17.210 Nicotine dependence, cigarettes, uncomplicated; F43.10 Post-traumatic stress disorder, unspecified; Z79.899 Other long term (current) drug therapy; T43.96XA Underdosing of unspecified psychotropic drug, initial encounter; Z91.128 Patient's intentional underdosing of medication regimen for other reason
CPT/HCPCS: 80053; 80306; 81001; 82075; 82248; 84443; 85025; 99285